=== PATIENT | female | born 1995 | race Two or more races ===

== ENCOUNTER 2023-02-22 18:42 | Emergency (ER) | payer OTHER ==
[~2023-02-22] VITALS: Ht 154.9 cm; Wt 95.6 kg
[2023-02-22 19:31] LABS: Basophils # (auto) 0 10 ^3/uL (0-0.2); Hemoglobin 12.8 g/dL (12.2-16.2); Nucleated Red Blood Cells % 0.1 %
[2023-02-22 19:33] LABS: Basophils % (auto) 0.3 % (0.0-2.0); Eosinophils # (auto) 0.2 10 ^3/uL (0-0.8); Hematocrit 39.5 % (36.0-46.0); Lymphocytes % (auto) 19.4 % (10.0-50.0); Mean Corpuscular Hemoglobin 26.8 pg (28.0-32.0); Mean Corpuscular Hgb Conc. 32.4 g/dL (32.0-36.0); Mean Corpuscular Volume 82.5 fL (80.0-100.0); Monocytes # (auto) 0.7 10 ^3/uL (0-1.3); Monocytes % (auto) 7.2 % (0.0-12.0); Neutrophils # (auto) 7.4 10 ^3/uL (1.6-8.6); Neutrophils % (auto) 71.1 % (37.0-80.0); Red Blood Cells 4.78 10^6/uL (4.0-5.20); Red Cell Distribution Width 14.6 % (11.8-14.3); White Blood Cell 10.4 10^3/uL (4.4-10.8)
[2023-02-22 19:47] LABS: Alanine Aminotransferase 12 U/L (7-40); Albumin 4.2 g/dL (3.2-4.8); Alkaline Phosphatase 77 U/L (46-116); Anion Gap 8 (5-15); Aspartate Aminotransferase 17 U/L (13-40); BUN/Creatinine Ratio 10.8 (10.0-20.0); Blood Urea Nitrogen 8 mg/dL (9-23); Calcium 9.1 mg/dL (8.5-10.1); Carbon Dioxide 24 mmol/L (20-30); Chloride 105 mmol/L (98-107); Glucose 102 mg/dL (74-106); Potassium 3.6 mmol/L (3.5-5.1); Sodium 137 mmol/L (136-145)
[2023-02-22 19:48] LABS: Bilirubin, Total 0.5 mg/dL (0.2-1.0); Total Protein 7.2 g/dL (5.7-8.2)
[2023-02-22 21:36] LABS: Urine Bacteria NONE SEEN /hpf (None Seen); Urine Blood Negative /uL (Negative); Urine Clarity HAZY (Clear); Urine Color Yellow (Yellow); Urine Protein, UAD Negative (Negative); Urine Urobilinogen Normal (Negative); Urine WBC 1 /hpf (0 - 5)
[2023-02-23 00:36] VITALS: BP 109/50; PULSE 73; RESP 18; TEMP 98; O2SAT 97
== END 2023-02-23 00:38 | disposition home or self-care (01) ==
LOC: ER 18:42
DX: O20.8 Other hemorrhage in early pregnancy (principal); R10.2 Pelvic and perineal pain; Z3A.01 Less than 8 weeks gestation of pregnancy
CPT/HCPCS: 36415; 80053; 81001; 81025; 84702; 85025

== ENCOUNTER 2024-02-23 21:11 | Emergency (ER) | payer MEDICAID, OTHER ==
--- NOTE | 2024-02-23 21:25 | ED.PDOC ---
History of Present Illness HPI Comments 28-year-old female with PMHx Gestational DM presents with a chief complaint of face pain and headache x 1 week s/p mechanical fall. Patient states that her pain is localized to her left facial area and left portion of her head. Patient states that x 1 week ago she had a mechanical fall at work and has since had the facial pain. Patient describes as pressure. Patient is ambulatory with steady gait and denies any other neurological symptoms. No other symptoms or modifying factors present at this time. 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 Family History Family History: Reviewed,noncontributory to illness, No family hx of Cancer, No family hx of DM, No family hx of Heart concepcion, No family hx of HTN, No family hx ofKidney concepcion, No family hx of Liver concepcino, No family hx of Lung concepcion, No family hx of Stroke Social History Smoker: Non-Smoker Alcohol: Denies ETOH Use Drugs: Denies Drug Use Lives In: Home Constitutional: denies: chills, diaphoresis, fatigue, fever, malaise, sweats, weakness, others EENTM: denies: blurred vision, double vision, ear bleeding, ear discharge, ear drainage, ear pain, ear ringing, eye pain, eye redness, hearing loss, mouth pain, mouth swelling, nasal discharge, nose bleeding, nose congestion, nose pain, photophobia, tearing, throat pain, throat swelling, voice changes, others Respiratory: denies: cough, hemoptysis, orthopnea, SOB at rest, shortness of breath, SOB with excertion, stridor, wheezing, others Cardiovascular: denies: chest pain, dizzy spells, diaphoresis, Dyspnea on exertion, edema, irregular heart beat, left arm pain, lightheadedness, palpitations, PND, syncope, others Gastrointestinal: denies: abdomen distended, abdominal pain, blood streaked bowels, constipated, diarrhea, dysphagia, difficulty swallowing, hematemesis, melena, nausea, poor appetite, poor fluid intake, rectal bleeding, rectal pain, vomiting, others Genitourinary: denies: abnormal vagina bleeding, burning, dyspareunia, dysuria, flank pain, frequency, hematuria, incontinence, pain, , vagina discharge, urgency, others Neurological: reports: headache, others (FACE PAIN); denies: dizziness, fainting, left sided numbness, left sided weakness, numbness, paresthesia, pre- existing deficit, right sided numbness, right sided weakness, seizure, speech problems, tingling, tremors, weakness Musculoskeletal: denies: back pain, gout, joint pain, joint swelling, muscle pain, muscle stiffness, neck pain, others Integumetry: denies: bruises, change in color, change in hair/nails, dryness, laceration, lesions, lumps, rash, wounds, others Allergic/Immunocompromised: denies: Difficulty Healing, Frequent Infections, Hives, Itching, others Hematologic/Lymphatic: denies: anemia, blood clots, easy bleeding, easy bruising, swollen glands, others Endocrine: denies: excessive hunger, excessive sweating, excessive thirst, excessive urination, flushing, intolerance to cold, intolerance to heat, unexplained weight gain, unexplained weight loss, others Psychiatric: denies: anxiety, bipolar disorder, depression, hopeless, panic disorder, schizophrenia, sleepless, suicidal, others All Other Systems: Reviewed and Negative Physical Exam General Appearance: No Apparent Distress, Normal HEENT: Normal ENT Inspection, Pharynx Normal, TMs Normal Neck: Full Range of Motion, Non-Tender, Normal, Normal Inspection Respiratory: Chest Non-Tender, Lungs Clear, No Accessory Muscle Use, No Respiratory Distress, Normal Breath Sounds Cardiovascular: No Edema, No JVD, No Murmur, No Gallop, Normal Peripheral Pulses, Regular Rate/Rhythm Breast Exam: Deferred Gastrointestinal: No Organomegaly, Non Tender, No Pulsatile Mass, Normal Bowel Sounds, Soft Genitalia: Deferred Pelvic: Deferred Rectal: Deferred Extremities: No calf tenderness, Normal capillary refill, Normal inspection, Normal range of motion, Non-tender, No pedal edema Musculoskeletal : Location: Left Extremity Location: Forearm (in splint) Neurologic: Alert, 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 Was a procedure done?: No Differential Dx Considerations may include: primary headache disorder, tension headache, migraine, skull fracture, intracranial bleed, intracranial mass, cerebral contusion, concussion, X-Ray, Labs, Meds, VS Vital Signs Date Time Temp Pulse Resp B/P (MAP) Pulse Ox O2 Delivery O2 Flow Rate FiO2 02/23/24 21:24 97.8 74 16 145/75 (98) 98 Lab Test 02/23/24 21:36 Range/Units Beta HCG, Quantitative < 0.0 L 1.5-4.2 mIU/mL Current Medications Medications (Trade) Dose Ordered Sig/Aury Route Start Time Stop Time Status Last Admin Acetaminophen/ Hydrocodone Bitart ([place] 5/325MG Tab) 1 tab ONCE ONCE PO 02/23/24 21:30 02/23/24 21:31 DC 02/23/24 22:10 Time of 1ST Reevaluation: 21:48 Reevaluation 1ST: Unchanged Time of 2ND Reevaluation: 21:57 Reevaluation 2ND: Improved (radiologist recommended a [address], due to uncertain hypodensity) Patient Education/Counseling: Diagnosis, Treatment, Prognosis, Need For Follow Up Family Education/Counseling: No Family Present Additional Information pt remains stable, without any signs of neurologic deficits, and her headache is controlled. she is waiting for repeat head ct. i will sign out to Dr Mata Departure 1 Departure Time of Disposition: 03:00 Impression: Primary Impression: Headache Qualified Codes: R51.9 - Headache, unspecified Additional Impression: Falling Disposition: 30 STILL A PATIENT Condition: Stable Critical Care Note Critical Care Time?: Yes (55 min-critical care time only) Critical care comment: due to concerns for patient's condition suddenly deteriorating, the care required my highest level of attention and readiness to intervene. i assessed her condition, ordered the proper tests and treatments, communicated with medical personnel and consultants, and reassessed her. i reviewed her test results, past medical records, assessed her for responsiveness and stability, and formulated a treatment plan. total critical care time does not include any procedures Stability Stability form required: No I personally scribed for JEMIMA COFFEY MD ([email or web address]) on 02/23/24 at 21:25. Electronically submitted by Finn Nunez ([email or web address]). JEMIMA COFFEY MD Feb 23, 2024 21:25
--- NOTE | 2024-02-23 21:59 | DVH ---
CT HEAD WITHOUT CONTRAST INDICATION: headache after falling EXAM DATE: 02/23/2024 09:27 PM COMPARISON: None RADIATION DOSE: CTDIvol: 53.04 mGy, DLP: 744.3 mGy*cm PROCEDURE: CT scans of the head were obtained from the vertex to the skull base. Sagittal and coronal reconstructions were provided. All CT scans at this medical facility are performed using dose modulation techniques as appropriate t o a performed exam including the following: Automated exposure control was utilized; adjustment of th e MA and/or KV according to patient size; and use of iterative reconstruction technique. FINDINGS: Small foci of hyperdensity in the right parietal lobe ott-white matter junction. The brai n otherwise shows normal morphology and ott-white matter differentiation, without intracranial hemor rhage, extra-axial fluid collection, mass effect or acute large vessel infarct. The ventricles are no rmal in size. The basal cisterns are patent. The skull and visible facial bones are intact. The paran aaron sinuses, mastoid air cells and middle ear cavities are well-aerated. The soft tissues of the sca lp are unremarkable. IMPRESSION: Small foci of hyperdensity in the right parietal lobe ott-white matter junction could be a foci of i ntraparenchymal hemorrhage in setting of trauma. 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 Follow up head CT recommended. Critical Result: Intracranial hemorrhage possible Findings discussed with JEMIMA COFFEY at 02/23/2024 09:53 PM and acknowledged receipt and understanding of the findings.
[2024-02-23] MEDS: HYDROcodone-ACET 5/325MG TAB PO ONE (22:10)
--- NOTE | 2024-02-24 03:03 | DVH ---
Examination: HWOCT CLINICAL INDICATION: Headache. 4 hrs follow-up. COMPARISON: None. CONTRAST USED: None. TECHNIQUE: The examination was performed obtaining 5 mm slices pre and post contrast. CT scan was do ne according to ALARA (As Low as Reasonably Achievable). Multiplanar reconstructions were obtained. FINDINGS: SUPRATENTORIAL BRAIN: Cerebral Hemispheres: There is no midline shift or mass effect, intra or extra-axial fluid collections or hemorrhage. Calcified granuloma of approximate size 4 mm in the right occipital lobe. Periventricular White Matter/Basal Ganglia: No abnormal areas of altered attenuation within the periventricular white matter or basal ganglia. POSTERIOR FOSSA: The brainstem is normal and the visualized cerebellar hemispheres are unremarkable. VENTRICULAR SYSTEM: The ventricular system is normal in size. There is no evidence of hydrocephalus or transependymal flow of cerebrospinal fluid. SKULL BASE AND PARASELLAR REGION: The skull base is normal with no parasellar masses or abnormalities identified. Empty sella seen. CALVARIUM AND SCALP REGION: No abnormality is seen. PARANASAL SINUSES: No significant inflammatory changes are identified in the visualized paranasal sinuses. IMPRESSION: 1. No evidence of acute large vessel territorial ischemic infarction or intraparenchymal hematoma in current study. 2. No obvious intracranial injury or skull vault fracture. 3. Chronic and / or ancillary findings as described above. 4. Advised further evaluation with MRI brain without contrast if clinically indicated. Electronically Signed 02/24/2024 03:02 Rad Khoury
--- NOTE | 2024-02-24 03:36 | ED.PDOC ---
Departure 1 Departure Time of Disposition: 03:35 (Patient's repeat head CT is benign. Patient is feeling better and would like to go home. We will discharge patient home) Impression: Primary Impression: Headache Qualified Codes: R51.9 - Headache, unspecified Additional Impression: Falling Disposition: HOME / SELF CARE / HOMELESS Condition: Stable Additional Instructions: Your workup today was benign. You can take Tylenol or Motrin as needed for pain. You should follow up with your regular doctor within 1 week. You should stay well rested and well hydrated. If your symptoms worsen or you have any other concerns please return to the emergency room. Discharged With: Self JEREL EDGAR MD Feb 24, 2024 03:36
[2024-02-24 03:50] VITALS: BP 137/84; PULSE 77; RESP 18; TEMP 97.9; O2SAT 97
== END 2024-02-24 03:54 | disposition home or self-care (01) ==
LOC: ER 21:11
DX: G44.309 Post-traumatic headache, unspecified, not intractable (principal); R10.2 Pelvic and perineal pain; W19.XXXA Unspecified fall, initial encounter; Y93.89 Activity, other specified; Y92.89 Other specified places as the place of occurrence of the external cause; Y99.0 Civilian activity done for income or pay
CPT/HCPCS: 36415; 70450; 84702